=== PATIENT | male | born 1990 | race Caucasian/White ===

== ENCOUNTER 2017-12-03 12:51 | Emergency (ER) | payer SELFPAY ==
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
[2017-12-03] MEDS ORDERED: TORAdol 30 mg Injection IM ONE (13:47)
[2017-12-03] MEDS ORDERED: TORAdol 30 mg Injection ONE (13:50)
[2017-12-03 14:04] VITALS: BP 130/71; PULSE 76
[2017-12-03 14:25] VITALS: O2SAT 99
== END 2017-12-03 14:10 | disposition short-term general hospital (02) ==
LOC: ED 12:51
DX: S89.92XA Unspecified injury of left lower leg, initial encounter (principal); M25.562 Pain in left knee; R55 Syncope and collapse; S01.21XA Laceration without foreign body of nose, initial encounter; V59.49XA Driver of pick-up truck or van injured in collision with other motor vehicles in traffic accident, initial encounter
CPT/HCPCS: 96372; 99285; J1885